=== PATIENT | female | born 1965 | race African-American/Black ===

== ENCOUNTER 2016-07-14 07:20 | Emergency (ER) | payer OTHER ==
[~2016-07-14] VITALS: Ht 162.6 cm; Wt 123.2 kg
[~2016-07-14 07:20] MED LIST: ALTACE1.25 MG PO; AZITHROMYCIN250 MG1 PO; CHOLESTYRAMINE P4 GM PO; FLONASE16 G1 BOTH NARES; HYCODAN SYRUP480 ML PO; HYDROCHLOROTH12.5 M3 PO; JANUVIA100 MG PO; METFORMIN HCL1000 MG PO; PERCOCET 5/31 TABLET PO; POTASSIUM CHLO10 ME3 PO; PREDNISONE10 M1 PO; PREDNISONE10 MG PO; PREDNISONE20 MG PO; PROVENTIL HFA6.7 GM IH; RAMIPRIL; SINGULAIR10 MG PO; SYMBICORT60 INHALAT IH; SYNTHROID137 MCG PO; TESSALON PERLE100 MG PO; ZITHROMAX Z-PA250 MG PO
[2016-07-14 08:44] LABS: INFLUENZA A VIRAL ANTIGEN NEGATIVE; INFLUENZA B VIRAL ANTIGEN NEGATIVE
[2016-07-14] MEDS ORDERED: TESSALON200 MG PO (09:17)
[2016-07-14] MEDS ORDERED: PREDNISONE20 MG PO (09:17)
[2016-07-14 09:35] VITALS: BP 122/72
== END 2016-07-14 09:38 | disposition home or self-care (01) ==
LOC: EME 07:20
PROVIDERS: Physician Assistant
DX: J45.901 Unspecified asthma with (acute) exacerbation (principal); I10 Essential (primary) hypertension; E05.00 Thyrotoxicosis with diffuse goiter without thyrotoxic crisis or storm
CPT/HCPCS: 71020; 87502; 93005; 94640; 99281; 99284; J7512

== ENCOUNTER 2016-12-05 18:49 | Emergency (ER) | payer OTHER ==
[~2016-12-05] VITALS: Ht 162.6 cm; Wt 123.8 kg
[~2016-12-05 18:49] MED LIST changes: -ALTACE1.25 MG PO; +ALTACE5 MG PO; -METFORMIN HCL1000 MG PO; +METFORMIN HCL500 M1 PO; -POTASSIUM CHLO10 ME3 PO; +POTASSIUM CHLO20 ME2 PO; +SINGULAIR CHEWAB4 MG PO; -SINGULAIR10 MG PO; -SYNTHROID137 MCG PO; +SYNTHROID88 MCG PO; +TESSALON200 MG PO
[2016-12-05] MEDS ORDERED: DELTASONE20 M1 PO (19:37)
[2016-12-05 19:52] VITALS: BP 153/83
== END 2016-12-05 19:56 | disposition home or self-care (01) ==
LOC: EME 18:49
DX: J04.0 Acute laryngitis (principal); J45.901 Unspecified asthma with (acute) exacerbation; E11.9 Type 2 diabetes mellitus without complications; Z79.84 Long term (current) use of oral hypoglycemic drugs
CPT/HCPCS: 87651 90; 99281; 99284; J7512

== ENCOUNTER 2016-12-06 23:03 | Emergency (ER) | payer OTHER ==
[~2016-12-06] VITALS: Ht 162.6 cm; Wt 123.9 kg
[~2016-12-06 23:03] MED LIST changes: +DELTASONE20 M1 PO
[2016-12-06 23:22] LABS: POINT-OF-CARE METER ID UU13113778
[2016-12-07 00:04] LABS: HEMATOCRIT 33.2 % (36.0-46.0); MCH 28.7 PG (29.0-34.0); MCHC 32.2 G/DL (30.0-36.0); MEAN PLAT.VOLUME 9.1 uM^3 (9.5-12.4); PLATELET COUNT 334 K/uL (156-360); RBC DIS.WIDTH-CV 14.8 % (11.8-14.6); RBC DIS.WIDTH-SD 48.2 % (39-53); RED BLOOD COUNT 3.73 M/uL (3.80-5.20); WHITE BLOOD COUNT 15.4 K/uL (4.1-10.2)
[2016-12-07 00:14] LABS: CHLORIDE 103 mEq/L (99-109); POTASSIUM 4.4 mEq/L (3.7-5.4); SODIUM 137 mEq/L (136-147)
[2016-12-07 00:15] LABS: GLUCOSE 318 mg/dL (70-99)
[2016-12-07 00:17] LABS: ANION GAP 12 MEQ/L (2-14)
[2016-12-07 00:19] LABS: GFR ESTIMATE (CALCULATED) 56 mL/min/
[2016-12-07 00:20] LABS: UREA NITROGEN (BUN) 14 mg/dL (9-23)
[2016-12-07 01:22] VITALS: BP 130/72
[2016-12-08] MEDS ORDERED: PROAIR HFA8.5 GM IH (10:42)
[2016-12-08] MEDS ORDERED: PREDNISONE20 MG PO (10:49)
[2016-12-08] MEDS ORDERED: ALLEGRA ALLERG180 MG PO (10:50)
[2016-12-08] MEDS ORDERED: SPIRIVA1 INHALATI IH (10:50)
[2016-12-08] MEDS ORDERED: GLIMEPIRIDE2 MG PO (10:50)
[2016-12-08] MEDS ORDERED: TRADJENTA5 MG PO (10:50)
[2016-12-08] MEDS ORDERED: DUONEB 2.5-0.5 M3 ML AEROSOL (10:50)
== END 2016-12-07 01:26 | disposition home or self-care (01) ==
LOC: EME 23:03
DX: E11.65 Type 2 diabetes mellitus with hyperglycemia (principal); J45.909 Unspecified asthma, uncomplicated; Z79.84 Long term (current) use of oral hypoglycemic drugs; I10 Essential (primary) hypertension; Z90.49 Acquired absence of other specified parts of digestive tract
CPT/HCPCS: 71020; 80048; 82948; 85027; 94640; 99281; 99285; J7030

== ENCOUNTER 2016-12-07 18:18 | Inpatient (IN) | payer OTHER ==
[~2016-12-07] VITALS: Ht 162.6 cm; Wt 123.8 kg
[2016-12-07 19:02] LABS: HEMATOCRIT 33.9 % (36.0-46.0); MCH 28.8 PG (29.0-34.0); MCHC 32.2 G/DL (30.0-36.0); MCV 89.4 FL (83-99); MEAN PLAT.VOLUME 8.7 uM^3 (9.5-12.4); PLATELET COUNT 299 K/uL (156-360); RBC DIS.WIDTH-SD 49.4 % (39-53); RED BLOOD COUNT 3.79 M/uL (3.80-5.20); WHITE BLOOD COUNT 14.5 K/uL (4.1-10.2)
[2016-12-07 19:14] LABS: CHLORIDE 104 mEq/L (99-109); POTASSIUM 3.6 mEq/L (3.7-5.4); SODIUM 137 mEq/L (136-147)
[2016-12-07 19:16] LABS: GLUCOSE 243 mg/dL (70-99)
[2016-12-07 19:17] LABS: ANION GAP 12 MEQ/L (2-14)
[2016-12-07 19:19] LABS: GFR ESTIMATE (CALCULATED) > 59 mL/min/
[2016-12-07 19:20] LABS: UREA NITROGEN (BUN) 17 mg/dL (9-23)
[2016-12-07 19:43] LABS: TROP-I INTERPRETATION NEGATIVE; TROPONIN-I < 0.01 ng/mL (0.0-0.30)
[2016-12-08 02:08] LABS: POINT-OF-CARE METER ID UU14100415
[2016-12-08 03:34] VITALS: BP 179/82
[2016-12-08 05:34] LABS: HEMATOCRIT 30.5 % (36.0-46.0); MCH 29.3 PG (29.0-34.0); MCHC 32.5 G/DL (30.0-36.0); MCV 90.2 FL (83-99); MEAN PLAT.VOLUME 9.3 uM^3 (9.5-12.4); PLATELET COUNT 276 K/uL (156-360); RBC DIS.WIDTH-CV 15.3 % (11.8-14.6); RBC DIS.WIDTH-SD 50.8 % (39-53); RED BLOOD COUNT 3.38 M/uL (3.80-5.20)
[2016-12-08 05:58] LABS: ANION GAP 12 MEQ/L (2-14); CHLORIDE 103 MEQ/L (99-109); GFR ESTIMATE (CALCULATED) > 59 mL/min/; GLUCOSE 209 mg/dL (70-99); POTASSIUM 3.9 MEQ/L (3.7-5.4); SAMPLE HEMOLYSIS CHECK 0; SAMPLE ICTERIC CHECK 0; SAMPLE LIPEMIA CHECK 0; SODIUM 136 MEQ/L (136-147); UREA NITROGEN (BUN) 14 mg/dL (9-23)
[2016-12-08 07:05] LABS: Estimated Average Glucose 166 mg/dL (70-123); HEMOGLOBIN A1c (GLYCOHEMOGLOB) 7.4 % HGB (Below 5.7)
[2016-12-08 07:55] VITALS: BP 141/71
[2016-12-08] MEDS ORDERED: PROAIR HFA8.5 GM IH (10:42)
[2016-12-08] MEDS ORDERED: PREDNISONE20 MG PO (10:49)
[2016-12-08] MEDS ORDERED: TRADJENTA5 MG PO (10:50)
[2016-12-08] MEDS ORDERED: SPIRIVA1 INHALATI IH (10:50)
[2016-12-08] MEDS ORDERED: DUONEB 2.5-0.5 M3 ML AEROSOL (10:50)
[2016-12-08] MEDS ORDERED: ALLEGRA ALLERG180 MG PO (10:50)
[2016-12-08] MEDS ORDERED: GLIMEPIRIDE2 MG PO (10:50)
[2016-12-08 11:26] VITALS: BP 147/77
[2016-12-08 16:31] LABS: POINT-OF-CARE METER ID UU14208750
[2016-12-08 16:53] VITALS: BP 138/68
[2016-12-08 19:24] VITALS: BP 186/77
[2016-12-08 23:28] VITALS: BP 132/72
[2016-12-09 03:38] VITALS: BP 124/66
[2016-12-09 05:45] LABS: EOSINOPHIL (%) 0 % (0-5); IMMATURE GRANULOCYTE (%) 1.8 % (0.0-0.7); IMMATURE GRANULOCYTE COUNT 0.2 K/uL; INSTRUMENT ABS NEUTROPHIL CT 9.7 K/uL; LYMPHOCYTE COUNT 1.4 K/uL (1.0-2.8); MCH 29.1 PG (29.0-34.0); MCHC 32.1 G/DL (30.0-36.0); MCV 90.9 FL (83-99); MONOCYTE (%) 5.2 % (3-12); MONOCYTE COUNT 0.6 K/uL (0-0.8); NEUTROPHIL (%) 81.5 % (45-76); NEUTROPHIL COUNT 9.7 K/uL (1.8-6.4); PLATELET COUNT 313 K/uL (156-360); RBC DIS.WIDTH-CV 15.4 % (11.8-14.6); RBC DIS.WIDTH-SD 50.6 % (39-53); RED BLOOD COUNT 3.74 M/uL (3.80-5.20); WHITE BLOOD COUNT 11.9 K/uL (4.1-10.2)
[2016-12-09 06:16] LABS: ALKALINE PHOSPHATASE 77 IU/L (3-129); ANION GAP 12 MEQ/L (2-14); CHLORIDE 100 MEQ/L (99-109); GFR ESTIMATE (CALCULATED) > 59 mL/min/; GLUCOSE 312 mg/dL (70-99); POTASSIUM 4.1 MEQ/L (3.7-5.4); SAMPLE HEMOLYSIS CHECK 0; SAMPLE ICTERIC CHECK 0; SAMPLE LIPEMIA CHECK 0; SODIUM 135 MEQ/L (136-147); TOTAL BILIRUBIN 0.4 MG/DL (0.0-1.0); UREA NITROGEN (BUN) 14 mg/dL (9-23)
[2016-12-09 07:25] VITALS: BP 132/62
[2016-12-09 15:15] VITALS: BP 136/69
[2016-12-09 23:56] VITALS: BP 131/61
[2016-12-10 06:25] LABS: EOSINOPHIL (%) 0 % (0-5); HEMATOCRIT 32.9 % (36.0-46.0); IMMATURE GRANULOCYTE (%) 1.4 % (0.0-0.7); IMMATURE GRANULOCYTE COUNT 0.2 K/uL; INSTRUMENT ABS NEUTROPHIL CT 10.1 K/uL; LYMPHOCYTE COUNT 1.6 K/uL (1.0-2.8); MCH 28.5 PG (29.0-34.0); MCHC 31.9 G/DL (30.0-36.0); MCV 89.4 FL (83-99); MEAN PLAT.VOLUME 9.3 uM^3 (9.5-12.4); MONOCYTE (%) 5.2 % (3-12); MONOCYTE COUNT 0.7 K/uL (0-0.8); NEUTROPHIL (%) 80.2 % (45-76); NEUTROPHIL COUNT 10.1 K/uL (1.8-6.4); PLATELET COUNT 302 K/uL (156-360); RBC DIS.WIDTH-CV 15.2 % (11.8-14.6); RBC DIS.WIDTH-SD 49.8 % (39-53); RED BLOOD COUNT 3.68 M/uL (3.80-5.20); WHITE BLOOD COUNT 12.6 K/uL (4.1-10.2)
[2016-12-10 06:47] LABS: ALKALINE PHOSPHATASE 73 IU/L (3-129); ANION GAP 11 MEQ/L (2-14); CHLORIDE 99 MEQ/L (99-109); GFR ESTIMATE (CALCULATED) > 59 mL/min/; GLUCOSE 224 mg/dL (70-99); POTASSIUM 4.4 MEQ/L (3.7-5.4); SAMPLE HEMOLYSIS CHECK 0; SAMPLE ICTERIC CHECK 0; SAMPLE LIPEMIA CHECK 0; SODIUM 135 MEQ/L (136-147); UREA NITROGEN (BUN) 20 mg/dL (9-23)
[2016-12-10 07:00] LABS: TOTAL BILIRUBIN 0.5 MG/DL (0.0-1.0)
[2016-12-10 08:29] VITALS: BP 118/53
[2016-12-10] MEDS ORDERED: CEFTIN500 MG PO (09:08)
[2016-12-10] MEDS ORDERED: JANUVIA100 MG PO (09:08)
== END 2016-12-10 09:59 | disposition home or self-care (01) | DRG 202 ==
LOC: EME 18:18 → EDOF 12-08 01:05 → ENRESERV 12-08 01:08 → EDOF 12-08 02:05 → 2EAST 12-08 03:07
PROVIDERS: Hospitalist; Internal Medicine
DX: J45.901 Unspecified asthma with (acute) exacerbation (principal); J20.9 Acute bronchitis, unspecified; E87.6 Hypokalemia; E11.65 Type 2 diabetes mellitus with hyperglycemia; T38.0X5A Adverse effect of glucocorticoids and synthetic analogues, initial encounter; D64.9 Anemia, unspecified; I10 Essential (primary) hypertension; E66.01 Morbid (severe) obesity due to excess calories; F32.9 Major depressive disorder, single episode, unspecified; E05.00 Thyrotoxicosis with diffuse goiter without thyrotoxic crisis or storm; Z68.42 Body mass index [BMI] 45.0-49.9, adult
CPT/HCPCS: 71010; 71020; 80048; 80053; 82948; 83036; 84484; 85025; 85027; 87651 90; 93005; 94640; 94640 76; 99202; 99281; 99284; 99285; J0696; J1644; J1815; J2920; J2930; J7030; J7050; J7512